=== PATIENT | female | born 1995 | race Caucasian/White ===

== ENCOUNTER → 2017-01-12 | Outpatient (CLI) | payer BC ==
--- NOTE | 2017-01-12 12:49 | DIAGNOSTIC IMAGING REPORT ---
LEFT ANKLE 4 VIEWS INCLUDING BILATERAL STANDING ANKLE MORTISE VIEWS CLINICAL HISTORY: Left ankle pain status post trauma COMPARISON: None. DISCUSSION: 3 views reveal no fractures or dislocations. There is no ankle mortise widening. The standing views appear symmetric. IMPRESSION: No fractures or dislocations identified. No evidence of ankle mortise widening. Electronically signed by: Burke Gar M.D. 01/12/2017 12:48 PM Dictated Date/Time: 01/12/2017 12:47 PM
== END | disposition home or self-care (01) ==
LOC: C.RDSM 11:33
PROVIDERS: ATTEND Internal Medicine
DX: S99.912A Unspecified injury of left ankle, initial encounter (principal); X58.XXXA Exposure to other specified factors, initial encounter